=== PATIENT | female | born 1980 | race Caucasian/White ===

== ENCOUNTER 2018-01-11 16:44 | Emergency (ER) | payer OTHER, SELFPAY ==
[2018-01-11 17:47] LABS: Bilirubin Negative (Negative); Blood, Urine Small (Negative); Clarity TURBID (Clear); Glucose, Urine (Dipstick) Negative (Negative); Leukocyte Negative (Negative); Nitrite Negative (Negative); Protein, Urine (Dipstick) Negative (Neg-Trace); Specific Gravity, Urine 1.015 (1.002-1.036); Urobilinogen 0.2 mg/dL (0.2-1.0)
[2018-01-11 17:50] LABS: Bacteria/HPF None Seen HPF (None Seen); Hyaline Casts/LPF 0-3 HYALINE CAST LPF (0-3 Hyaline); Pathc Cast-AUWi Flag 0.58 (0-2.49); Squamous Epithelial 0-3 HPF (0-3); WBC/HPF None Seen HPF (0-3)
[2018-01-11 17:53] LABS: #Basophils 0.1 thou/uL (0.0-0.2); #Eosinphils 0.3 thou/uL (0.0-0.7); #Lymphocytes 2.3 thou/uL (1.20-3.40); #Monocytes 0.4 thou/uL (0.11-0.59); #Neutrophils 6.4 thou/uL (1.40-6.50); %Basophils 0.6 % (0.0-1.0); %Lymphocytes 24.5 % (21.0-51.0); %Monocytes 4.6 % (0.0-10.0); %Neutrophils 67.4 % (42.0-75.0); Hemoglobin 13.5 g/dL (12.0-16.0); Mean Corpuscular HGB CONC 34.1 g/dL (32.0-36.0); Mean Corpuscular Hemoglobin 33.1 pg (27.0-31.0); Mean Corpuscular Volume 97.2 fL (78.0-98.0); Mean Platelet Volume 7.1 fL (7.4-10.4); Platelet Count 233 thou/uL (130-400); RBC Distribution Width 11.6 % (11.5-14.5); Red Blood Cell (RBC) Count 4.08 mill/uL (4.20-5.40); White Blood Cell (WBC) Count 9.5 thou/uL (4.8-10.8)
--- NOTE | 2018-01-11 20:29 | ULT ---
PELVIC ULTRASOUND: 01/11/18 COMPARISON: None. HISTORY: Pelvic pain. TECHNIQUE: Multiplanar goldberg scale and color doppler images were obtained in a transabdominal and transvaginal pe lvic ultrasound. Spectral analysis of the doppler waveforms of the ovaries were performed. FINDINGS: There is a gestational sac seen within the uterus. A yolk sac is seen. No pole is seen at this time. Mean sac diameter is 1.51 cm with estimated gestational age of 6 weeks, 2 days. No free fluid is seen in the pelvis. Both ovaries are normal in size and appearance and demonstrate n ormal internal flow. A corpus luteum cyst is seen in the left ovary measuring 1.3 cm in greatest dime nsion. IMPRESSION: Single live intrauterine with estimated age of 6 weeks, 2 days. POS: LUCIE
== END 2018-01-11 21:58 | disposition home or self-care (01) ==
LOC: ERS 16:44
DX: O09.521 Supervision of elderly multigravida, first trimester (principal); O23.591 Infection of other part of genital tract in pregnancy, first trimester; O99.341 Other mental disorders complicating pregnancy, first trimester; F90.9 Attention-deficit hyperactivity disorder, unspecified type; F31.9 Bipolar disorder, unspecified; Z87.891 Personal history of nicotine dependence; Z3A.01 Less than 8 weeks gestation of pregnancy
CPT/HCPCS: 36415; 76856; 81003; 81015; 84702; 85025; 86900; 86901; 87480; 87491; 87510; 87591; 87660; 90384; 96372; 96374

== ENCOUNTER 2020-03-03 09:05 | Day surgery (SDC) | payer OTHER ==
[2020-03-03 09:26] VITALS: BP 127/75; TEMP 98
[2020-03-03 09:27] VITALS: BMI 33.4
[2020-03-03] MEDS ORDERED: hydrALAZINE 20 MG/ML VIAL SLOW IVP PRN (09:36)
--- NOTE | 2020-03-03 10:24 | PDOC.LDHP ---
Labor and Delivery H&P Chief complaint: other (fall) HPI: 39 year old at 21.2, who presents post-fall. She states that around 7 am, she tripped at home and landed on her R arm and R hip. Pt states she was shuffling around after she saw a rat and her left leg gave out from underneath her. Pt reports decreased movements. Denies vaginal bleeding, d/c, LOF or ctx. She c/o 10/10 lower abdominal pain which has been coming and going since then. Pt had a similar pain earlier this . She reports numbness and pain with extension of her R wrist. Pt has had pain in B hands throughout due to nerve impingement. This feels slightly worse in R wrist. In December she was admitted to the [facility] for pelvic cramping and vaginal bleeding. There she was told that the baby was "under stress" and put on bed rest for 2-3 days. She also received a Rhogam shot at that time. Due to O negative blood type. Her OB provider for this is Dr. Coello. ROS: denies headache, nausea, vomiting, diarrhea, vision changes, lightheadedness, runny nose, fever, chest pain, palpitations. Current gestational age (weeks): 21 (21.2) Due date: 07/12/20 Grav: 3 Para: 1 OB History Details: 2002: twin , vanishing twin in 1T, twin B delivered at term 2018: miscarriage Current complications: other (1T vaginal bleeding) Past Medical History: GERD Cholelithiasis MDD Bipolar MICHELE Current medications: pre-chacha vitamins, other (ASA) Previous surgical history: other (ERCP for gallstones) Allergies/Adverse Reactions: Allergies Allergy/AdvReac Type Severity Reaction Status Date / Time naproxen Allergy Verified 03/03/20 09:21 Social history: none - Physical Exam Vital signs reviewed and normal: yes General: NAD, resting Heart: RRR Lungs: CTAB Abdomen: gravid (NTTP) Extremeties: other (R wrist pain with passive and active extension) - OB Labs Blood type: O RH: negative - Plan Plan: observation in L&D -: 39 y/o @ 21.2 weeks presents to L&D for fall 1. ground level fall to R wrist and R hip - FHT's 150 per doppler - TOCO monitoring during obs - type and screen, Pt self reports hx of O neg blood type - US ordered - fall low risk without direct abdominal trauma, will monitor for 4 hours on L&D - R wrist x-ray ordered 2. sIUP @ 21.2 weeks - toco and fht's 150 on doppler - type and scree - sono pending 3. PMHX of Bipolar, MDD, MICHELE, gallstones and gerd - aware and stable. Dispo: obs on L&D for at least 4 hours pending xrays, labs and sono Care plan discussed with Dr. Lindsay, attending physician who is in agreement with above stated plan. Addendum - Attending - Attending Attestation Date/Time: 03/03/20 5752 I personally evaluated the patient and discussed the management with Dr. Graves. 21 week IUP s/p fall at home. No bleeding or LOF. I agree with the History, Examination, Assessment and Plan documented above.
--- NOTE | 2020-03-03 11:40 | ULT ---
Limited obstetrical ultrasound: 03/03/2020 COMPARISON:None available HISTORY:43-year-old female status post fall TECHNIQUE: Multiplanar grayscale sonographic imaging of thegravid uterus provided FINDINGS:There is a single intrauterine gestation demonstrating a breech presentation and a hea rt rate of 168 bpm. Amniotic fluid index is 10.7 cm. The placenta is located posteriorly and demonstrates no evidence for previa or abruption. The distal tip of the placenta is slightly difficult to visualize secondary to patient body habitus. The tip of the placenta appears to be approximately 2.0 cm from the internal os, suggesting a low lying place nta. biometry: Biparietal diameter 4.8 cm 20 weeks 4 days Head circumference 19.1 cm 21 weeks 2 days Abdominal circumference 17.4 cm 22 weeks 2 days Femur length 3.8 cm 22 weeks 0 days Average age based on ultrasound is 21 weeks 3 days. Estimated date of delivery is 07/11/2020. Estimated weight is 472 g +/- 70 grams. anatomy was not assessed on this examination. Fet al adnexa was not visualized on this examination. IMPRESSION:Intrauterine gestation as above.
--- NOTE | 2020-03-03 12:17 | RAD ---
RIGHT WRIST RADIOGRAPHS THREE VIEWS: 03/03/20 PROVIDED CLINICAL HISTORY: Pain status post injury. FINDINGS: There is no evidence for fracture or other acute osseous abnormality. If there is persistent clinical concern, conservative management and follow-up imaging are advised. IMPRESSION: As above. POS: LISA
[2020-03-03] MEDS ORDERED: Acetaminophen 500 MG TAB PO SCH (13:00)
--- NOTE | 2020-03-03 14:01 | PDOC.BPN ---
<Amy Goode - Last Filed: 03/03/20 14:03> - Brief Progress Note Encounter Date: 03/03/20 Encounter Time: 13:57 sonogram: CANDIDO 10.7, FHT: 168, Posterior placenta, breech presentation TOCO: no contractions observed, only interference from movement. FHT 150 on doppler No vaginal bleeding O negative--> rhogam not indicated due to anti-D present on type and screen. dispo: d/c home in improved condition. Dr. Lindsay, attending physician, is in agreement with above states plan. <Nadir Lindsay - Last Filed: 03/03/20 15:02> Addendum - Attending - Attending Attestation Date/Time: 03/03/20 [id number] I personally evaluated the patient and discussed the management with Dr. Goode. No bleeding, LOF or UCs seen while here. USG nonfocal. Rh negative, T&S indicates presence of residual Anti-D from earlier Rhogam administration. Home with precautions, f/u with her caregiver at [facility]. I agree with the History, Examination, Assessment and Plan documented above.
== END 2020-03-03 14:13 | disposition home or self-care (01) ==
LOC: L&D/OP 09:05
PROVIDERS: ATTEND Obstetrics & Gynecology
DX: O99.891 Other specified diseases and conditions complicating pregnancy (principal); M25.531 Pain in right wrist; O36.8120 Decreased fetal movements, second trimester, not applicable or unspecified; O99.612 Diseases of the digestive system complicating pregnancy, second trimester; K21.9 Gastro-esophageal reflux disease without esophagitis; O09.292 Supervision of pregnancy with other poor reproductive or obstetric history, second trimester; O09.522 Supervision of elderly multigravida, second trimester; O32.1XX0 Maternal care for breech presentation, not applicable or unspecified; Z3A.22 22 weeks gestation of pregnancy; Z79.82 Long term (current) use of aspirin; Z79.899 Other long term (current) drug therapy; Z88.6 Allergy status to analgesic agent; W01.0XXA Fall on same level from slipping, tripping and stumbling without subsequent striking against object, initial encounter; Y92.009 Unspecified place in unspecified non-institutional (private) residence as the place of occurrence of the external cause
CPT/HCPCS: 36415; 76815; 86850; 86870; 86900; 86901

== ENCOUNTER 2023-12-24 09:02 | Outpatient (CLI) | payer BC | END 2023-12-24 09:03 | disposition home or self-care (01) | LOC: SCSRAD 09:02 | PROVIDERS: ATTEND Family Medicine | DX: M25.512 Pain in left shoulder (principal) ==